=== PATIENT | male | born 1965 | race Caucasian/White ===

== ENCOUNTER 2025-02-27 15:07 | Emergency (ER) | payer OTHER, SELFPAY ==
[2025-02-27 15:33] VITALS: BP 154/101
[2025-02-27 15:56] LABS: Hematocrit 48.3 % (39.0-52.0); Hemoglobin 16.9 g/dL (13.0-18.0); Mean Corp Hgb Conc. 35.0 g/dL (33.0-37.0); Mean Corpuscular Volume 89.9 fL (80.0-94.0); Nucleated Red Blood Cells % 0 % (-); Platelet Count 259 10^3/uL (130-400); Red Cell Dist. Width 12.8 % (11.5-14.5)
[2025-02-27 16:09] LABS: ALT (SGPT) 21 U/L (0-50); AST (SGOT) 27 U/L (17-59); Albumin 4.3 g/dl (3.5-5.0); Alkaline Phosphatase 68 U/L (38-126); Blood Urea Nitrogen 16 mg/dl (9-20); Calcium 8.8 mg/dl (8.4-10.2); Carbon Dioxide 30 mmol/L (22-30); Chloride 106 mmol/L (98-107); Glucose 127 mg/dl (70-99); Potassium 3.6 mmol/L (3.5-5.1); Sodium 141 mmol/L (135-145); Total Protein 7.0 g/dl (6.3-8.2); eGFR > 60.00
[2025-02-27 16:20] LABS: Troponin I < 0.012 ng/ml
[2025-02-27 16:26] LABS: Lipase 115 U/L (23-300)
--- NOTE | 2025-02-27 17:51 | ED.GENMED ---
History of Present Illness
General
Chief Complaint: Abdominal Pain
Source: patient and spouse
Exam Limitations: none
Time Seen by Provider: 02/27/25 17:08
Nursing documentation reviewed up to this point in time: agreed with
History of Present Illness
History of Present Illness:
Patient presents to ED secondary to persistent abdominal pain with decreased appetite and fatigue over the past 3 days. Abdominal pain described as achy, diffuse, without any alleviating factors, but mildly exacerbated when sitting up. Denies
fever or chills. Denies nausea, vomiting, or diarrhea. Denies trauma. Patient states that he does lift heavy weight for work, but is not unusual for him. In addition, patient states that on weekends, he gets scheduled with his parents and drinks
fair amount of alcohol. Denies previous history of similar symptoms. Denies recent illness. Denies recent change in medications or diet. Denies recent weight change.
Past History
Past History
ED Past Medical History: HTN
ED Past Surgical History: None
Social History
Tobacco: Non-smoker
Alcohol: Occasional
Drug: None
Personal:
Living: with family
Employment: Employed
Review of Systems
Review of Systems
Allergies reviewed?: Yes
All Other Systems: ROS reviewed and negative except as documented in HPI and ROS
Constitutional: Reports no symptoms; Denies fever
Respiratory: Reports no symptoms
Cardiac: Reports no symptoms; Denies chest pain
ABD/GI: Reports abdominal pain; Denies vomiting or diarrhea
Musculoskeletal: Reports no symptoms
Skin: Reports no symptoms
Neurological: Reports no symptoms
Phy Exam
Physical Exam
Physical Exam:
Physical Exam
General: no apparent distress, not acutely ill. afebrile
Head: nc/at. eomi
Neck: supple. normal range of motion.
Heart: s1/s2 regular rate and rhythm
Lungs: no acute respiratory distress. clear bilaterally
Abdomen: normal bowel sounds. no distention. mild RLQ tenderness to palpation
Neuro: alert and oriented x 3. no focal neurological deficits
Skin: no rash
Psychiatric: well kept. interactive and cooperative
Extremities: no edema. no calf tenderness.
Course
Orders/Labs/Results
Orders:
Orders
02/27/25 15:36
EKG [Electrocardiogram (*1)] Urgent
Reason for Study: Abdominal Pain
EKG- Treatment ONCE
02/27/25 15:46
Complete Blood Count/With Diff Urgent
Comprehensive Metabolic Panel Urgent
Lipase Urgent
Troponin I Urgent
02/27/25 17:41
CT Abd/pelvis W Iv Cont Urgent
Comment:
Reason For Exam: RLQ pain
Abnormal Lab Results
02/27/25
15:46
MCH 31.5 H pg
(27.0-31.0)
Eosinophils % 6.6 H %
(0-6)
Glucose 127 H mg/dl
(70-99)
02/27/25 15:46
02/27/25 15:46
Vital Signs
Initial and Last Documented VS:
Initial Vital Signs
Temp Pulse Resp BP Pulse Ox
98.5 F 76 17 154/101 99
02/27/25 15:33 02/27/25 15:33 02/27/25 15:33 02/27/25 15:33 02/27/25 15:33
Last Documented Vital Signs
Temp Pulse Resp BP Pulse Ox
98.5 F 76 17 149/97 94
02/27/25 15:33 02/27/25 15:33 02/27/25 15:33 02/27/25 20:00 02/27/25 20:47
MDM/Problems Addressed
MDM/Problems Addressed:
CT abdomen pelvis report reviewed and discussed with patient and spouse. Otherwise, patient remains afebrile, hemodynamically stable, and comfortable during observation. Differential diagnosis including gastritis versus ulcer versus reflux versus
esophagitis discussed with patient. Patient will follow-up with his GI physician as an outpatient for consultation, including potential endoscopy. In the meantime, recommended diet modification, cutting back on alcohol intake, along with PPI as an
outpatient. Advised return to ED with worsening symptoms, i.e. fever/worsening pain/vomiting. Patient expressed understanding at time of discharge. Patient given copy of CT on a disk prior to discharge.
*Pulse Oximetry
SaO2: 99
Oxygen Mode of Delivery: Room air
Patient hypoxic: no
*Critical Care Note
Total Time (30-74mins, 75-104mins- exclusive of procedures): Not Applicable
ED Attending Note
-
Portions of this chart may have been created with voice recognition software.� Occasional wrong word or��sound alike� substitutions may have occurred due to the inherent limitations of voice recognition software.
Discharge Plan
Departure
Patient Disposition: Home (Routine Discharge)
Date of Disposition: 02/27/25
Time of Disposition: 20:29
Patient with high blood pressure during this ER visit?: Yes
Condition: Good
Discharge Problem:
Abdominal pain
Instructions: Abdominal Pain
Prescriptions:
No Action
enalapril maleate 5 MG tablet
5 mg PO BID
metoprolol tartrate 50 MG tablet
2 tablets PO BID
Referrals:
Uzma Holm DO [Family Provider, Internal Medicine]
Activity Restrictions/Additional Instructions:
As discussed, please follow-up with your primary care physician and/or GI physician for further evaluation and treatment. Please consider return to ED with worsening symptoms, i.e. fever/worsening pain/vomiting.
Interventions
Interventions:
*Risk Screen - Suicide Last Done: 02/27/25 15:35
*General Assessment Last Done: 02/27/25 15:35
*Neglect/Abuse Screening Last Done: 02/27/25 15:35
*ED- Fall Risk Assessment Last Done: 02/27/25 18:15
*ED COVID-19 Vaccine History Last Done: 02/27/25 15:35
*ED Influenza Vaccine History Last Done: 02/27/25 15:35
*Nursing Disposition Last Done: 02/27/25 20:53
FY-Arlbcp-Kkulktzday Assessment Last Done: 02/27/25 18:16
Discharge Date and Time
Discharge Date/Time: 02/27/25 21:08
Print Language: HUNGARIAN
[2025-02-27 18:15] VITALS: BMI 33.5
[2025-02-27 19:27] VITALS: BP 153/95
[2025-02-27 20:00] VITALS: BP 149/97
== END 2025-02-27 21:08 | disposition home or self-care (01) ==
LOC: EMR 15:07
PROVIDERS: Emergency Medicine; EMERGENCY PHYSICIAN Emergency Medicine; FAMILY PHYSICIAN Internal Medicine
DX: R10.9 Unspecified abdominal pain (principal); I10 Essential (primary) hypertension
CPT/HCPCS: 99284; 74177; 80053; 83690; 84484; 85025; 93005; Q9967